=== PATIENT | male | born 1960 ===

== ENCOUNTER 2023-10-14 06:07 | Day surgery (SDC) | payer BC, SELFPAY ==
[2023-10-01 08:02] VITALS: BMI 23.9
[2023-10-14] VITALS (8 sets, daily range): BP systolic 116–149; BP diastolic 69–86; BMI 23.9
[2023-10-14] MEDS: TYLENOL 1000 MG PO (06:42)
[2023-10-14] MEDS: NORMOSOL-R 1000 IV (06:42)
--- NOTE | 2023-10-14 07:04 | HP.FOC2 ---
Focused History & Physical
Chief Complaint
HPI:
Chief Complaint: Bilateral inguinal hernias
HPI / Indication for Planned Procedure: Patient is a 62-year-old male recently seen in outpatient surgical consultation secondary to bilateral inguinal swelling right side larger than left. Confirmed on physical examination and prior CT imaging.
Relevant Past Medical History: Other (Hypercholesterolemia, asthma)
Relevant Social History: Negative
Relevant Family History: Negative
Relevant Past Surgical History: Positive for (Sinus surgery, tonsillectomy)
Review of Systems
Review of Pertinent Systems: All Systems Negative
Medication
See Medication form for detailed medications: Yes
Medication List (including Herbals & OTC):
Baby Aspirin 81 mg PO DAILY 10/04/23
fluticasone 100 mcg-salmeterol 50 mcg/dose blistr powdr for inhalation 1 inh inhalation BID 10/04/23
multivitamin 1 tab PO DAILY 10/04/23
rosuvastatin 20 mg tablet 20 mg PO DAILY 10/04/23
acetaminophen 500 mg tablet 1,000 mg PO Q6H PRN pain 10/14/23
Medications Reviewed: Yes
Allergies and Reactions
Patient has Allergies: No
Noted Allergies and Reactions:
Allergy/AdvReac Type Severity Reaction Status Date / Time
No Known Allergies Allergy Verified 10/14/23 06:13
Pertinent Physical Exam
All Other Systems: Negative
Head/Neck: Normal
Lungs: Normal
Heart: Normal and Other
Abdomen: Other (Bilateral inguinal hernias right larger than left)
Extremities: Normal
Neurological: Normal
Diagnosis / Assessment
Assessment: 62-year-old male presenting for scheduled operative correction bilateral inguinal hernias
Plan / Procedure
robotic assisted laparoscopic repair bilateral inguinal hernias with mesh
Anesthesia/Sedation to be done by Anesthesia Provider: Yes
--- NOTE | 2023-10-14 07:13 | W.SUR.PREOP ---
Pre-Operative Surgical Note
-
I have examined this patient prior to the performance of the scheduled procedure.
The patient's condition is unchanged from the time of the current History and
Physical and the patient is able to undergo the scheduled procedure.
--- NOTE | 2023-10-14 09:54 | W.IMMPOSTOP ---
Addendum entered and electronically signed by Rusty Almazan MD 10/14/23 10:19:
The assistance of Elena Draper PA-C was required due to the complexity of the procedure. During the procedure Elena Draper PA-C assisted with port placement, robotic instrumentation and suture material exchanges, and closure of the surgical incision
sites. I was present for the entirety of the operative procedure.
#[id number]
Original Note:
Surgical Immed Post Op Note
-
Primary Surgeon: Tha
Assisting Surgeon: Elena Draper PA-c
Pre-op Diagnosis: Bilateral inguinal hernias
Post-op Diagnosis: Bilateral inguinal hernias; right indirect, left direct
Procedure Performed: RAL DE bilateral inguinal hernia pair with mesh; 3D max large mid weight x 2
Anesthesia Type: GETA +0.25% Marcaine
Specimen / Cultures: None
Estimated Blood Loss: 6 mL
Complications: None immediate
Operative Findings: Right indirect inguinal hernia and lipoma of cord reduced and excised. Right indirect inguinal hernia sac suture-ligated at base. 3D max large mid weight mesh repair. Left direct inguinal hernia and large lipoma of cord
reduced and excised. 3D max large mid weight mesh repair.
== END 2023-10-14 11:15 | disposition home or self-care (01) ==
LOC: SDS 06:07
PROVIDERS: ATTENDING PHYSICIAN Surgery
DX: K40.20 Bilateral inguinal hernia, without obstruction or gangrene, not specified as recurrent (principal); J45.909 Unspecified asthma, uncomplicated
CPT/HCPCS: 49650; 36415; 87070; 87147; 93005; C1781